=== PATIENT | female | born 1980 | race Caucasian/White ===

== ENCOUNTER 2016-08-17 01:11 | Emergency (ER) | payer SELFPAY | END 2016-08-17 02:01 | disposition left against medical advice (07) | LOC: ER 01:12 | DX: Z53.21 Procedure and treatment not carried out due to patient leaving prior to being seen by health care provider (principal) ==

== ENCOUNTER 2021-01-15 12:06 | Emergency (ER) | payer MEDICAID ==
[~2021-01-15] VITALS: Ht 167.6 cm; Wt 61.2 kg
[2021-01-15] MEDS ORDERED: LORAZEPAM INJ 2 MG/ML VIAL IM ONE (12:30)
[2021-01-15] MEDS ORDERED: OLANZAPINE 10 MG VIAL IM ONE ×2 (12:30→12:35)
[2021-01-15] MEDS ORDERED: LORAZEPAM INJ 2 MG/ML VIAL ONE (12:35)
--- NOTE | 2021-01-15 12:47 | NUR ---
PRASHANT FOUND ON A GROUND BY BYSTANDER. TO ER BED7. AAOX3. NOT IN RESP DISTRRESS. AMBULATORY. PER EMS REPORT, PT WAS FOUND DOWN BY A BYSTANDER AND GIVEN 4MG NARCAN INTRANASALLY. PT WAS REPORTED TO BE AWAKE UPON EMS ARRIVAL. PT ADMITS TO SMIKING [facility]. MD WAS AT THE BEDSIDE FOR EVAL. ORDERS RECEIVED, NOTED AND CARRIED OUT.
--- NOTE | 2021-01-15 12:56 | NUR ---
PT UNABLE TO PRODUCE URINE AT THIS TIME. PT IS GIVEN WATER. AWARE
[2021-01-15 13:09] LABS: BASOPHILS % (AUTO) 0.3 % (0.0-2.0); EOSINOPHILS % (AUTO) 0.1 % (0.0-6.0); HEMATOCRIT 41 % (33-45); HEMOGLOBIN 13.6 g/dL (11.5-14.8); LYMPHOCYTES # (AUTO) 0.8 K/uL (0.8-4.8); LYMPHOCYTES % (AUTO) 5.6 % (20.0-44.0); MEAN CORPUSCULAR HGB CONC 33 g/dl (31.0-36.0); MEAN CORPUSCULAR VOLUME 87 fL (82-100); MONOCYTES # (AUTO) 0.6 K/uL (0.1-1.30); MONOCYTES % (AUTO) 4.1 % (2.0-12.0); NEUTROPHILS # (AUTO) 12.2 K/uL (1.8-8.9); NEUTROPHILS % (AUTO) 89.9 % (43.0-81.0); PLATELET COUNT (AUTO) 279 K/uL (150-450); RED BLOOD CELL COUNT(AUTO) 4.74 MIL/uL (4.0-5.2); WHITE BLOOD COUNT (AUTO) 13.6 K/uL (4.3-11.0)
[2021-01-15 14:01] LABS: CALCIUM, SERUM 8.7 mg/dL (8.5-10.1); CARBON DIOXIDE 28 mmol/L (21-32); CHLORIDE 104 mmol/L (98-107); CREATININE 1.1 mg/dL (0.6-1.3); GLUCOSE 98 mg/dL (74-106); POTASSIUM 3.3 mmol/L (3.5-5.1); SODIUM SERUM 142 mmol/L (136-145); UREA NITROGEN, BLOOD 12 mg/dL (7-18)
[2021-01-15 14:14] LABS: ALANINE AMINOTRANSFERASE 29 U/L (12-78); ALBUMIN 3.8 g/dL (3.4-5.0); ALKALINE PHOSPHATASE 49 U/L (46-116); ASPARTATE AMINOTRANSFERASE 30 U/L (15-37); BILIRUBIN,DIRECT 0.1 mg/dL (0.0-0.2); BILIRUBIN,TOTAL 0.6 mg/dL (0.2-1.0); TOTAL PROTEIN, SERUM 7.6 g/dL (6.4-8.2)
--- NOTE | 2021-01-15 14:18 | NUR ---
DARYA [phone]
[2021-01-15 14:21] LABS: ACETAMINOPHEN 0 ug/ml (10-30); ALCOHOL, BLOOD < 3 mg/dL (0-0)
--- NOTE | 2021-01-15 15:24 | NUR ---
Funeral Location Manager note: patient services specialist consult requested for overdose. Patient is a 40-year-old, female. SW attempted to interview patient at her bedside in the emergency department. Patient was unarousable. Patient is possibly homeless. SW was unable to assess patient's need for community resources. PLAN: SW filed homeless resources and waiver in the patient's chart and notified APURVA [place]. SS will remain available as needed.
[2021-01-15 17:43] LABS: BILIRUBIN,URINE Negative (NEGATIVE); COLOR,URINE YELLOW (YELLOW); LEUKOCYTE ESTERASE ,URINE Negative (NEGATIVE); NITRITE, URINE Positive (NEGATIVE); PH,URINE 5.5 (5.0-8.0); PROTEIN,URINE >=300 mg/dl (NEGATIVE); UGLUCOSE Negative (NEGATIVE); UROBILINOGEN,URINE 0.2 EU/dL (0.2)
[2021-01-15 17:46] LABS: BACTERIA,URINE 2+ /HPF (None Seen); SQUAMOUS EPITHELIAL CELL,UR Few /HPF (None Seen)
--- NOTE | 2021-01-15 21:30 | NUR ---
PT'S AMBULATION TESTED AND TOLEARTED WELL ON STEADY GAIT. PT WAS PROVIDED WITH A MEAL WELL.
--- NOTE | 2021-01-15 22:00 | NUR ---
Patient discharged to home in stable condition. Written and verbal after care instructions given. Patient verbalizes understanding of instruction. ambulatory with a steady gait Patient given written and verbal discharge instructions. Patient verbalizes understanding of instructions. Patient is ambulatory with steady gait. Refuses offer of [facility] placement. Patient given list of available shelters in surrounding area.
[2021-01-15 22:32] VITALS: BP 114/72
== END 2021-01-15 22:00 | disposition home or self-care (01) ==
LOC: ER 12:08
DX: T50.901A Poisoning by unspecified drugs, medicaments and biological substances, accidental (unintentional), initial encounter (principal); F17.200 Nicotine dependence, unspecified, uncomplicated; Z60.2 Problems related to living alone; Y92.89 Other specified places as the place of occurrence of the external cause
CPT/HCPCS: 36415; 71045; 80048; 80076; 80143; 80307; 80320; 81001; 85025; 87077; 87086; 96372 ×2; 99284; J2060; J3490; G0480